=== PATIENT | male | born 1965 | race Caucasian/White ===

== ENCOUNTER 2018-07-18 00:34 | Emergency (ER) | payer BC, OTHER ==
[2018-07-18] MEDS ORDERED: FUROSEMIDE 40 MG TABLET PO ONE (01:12)
--- NOTE | 2018-07-18 01:15 | ER Document Report ---
ED General - General Chief Complaint: Shortness Of Breath Stated Complaint: DIFFICULTY BREATHING Time Seen by Provider: 07/18/18 01:06 Notes: Patient is a pleasant 52-year-old male who presents with complaint of feeling short of breath. He says has happened a few times last month where he lays flat he feels as if he cannot get air in his lungs. He sits up and gets better. He says he still has a feeling a little bit now but is getting better now that he has been sitting up for a long period time. He initially said he does not notice edema in his legs however when I look at his legs he does have obvious pitting edema and his says that this has been worsening as of recently. He denies any chest pain. No fevers. He quit smoking 20 years ago. No history of COPD or emphysema. No history of congestive heart failure. No history of coronary disease. No abdominal pain. No other complaints at this time. TRAVEL OUTSIDE OF THE [place] IN LAST 30 DAYS: No - Related Data Allergies/Adverse Reactions: latex Allergy (Verified 07/18/18 00:43) Past Medical History - Social History Smoking Status: Former Smoker Frequency of alcohol use: None Drug Abuse: None Family History: Reviewed & Not Pertinent Review of Systems - Review of Systems Notes: My Normal Review Basic REVIEW OF SYSTEMS: CONSTITUTIONAL : Denies fever, chills, or sweats. Denies recent illness. EENT: Denies eye, ear, throat, or mouth pain or symptoms. Denies nasal or sinus congestion. CARDIOVASCULAR: Denies chest pain. RESPIRATORY: Difficulty breathing. GASTROINTESTINAL: Denies abdominal pain. Denies nausea, vomiting, or diarrhea. GENITOURINARY: Denies difficulty urinating, painful urination, burning, frequency, or blood in urine. MUSCULOSKELETAL: Small amount of edema bilateral lower extremities. SKIN: Denies rash or skin lesions. NEUROLOGICAL: Denies sensory or motor loss. ALL OTHER SYSTEMS REVIEWED AND NEGATIVE. Physical Exam - Vital signs Vitals: Temp Pulse Resp BP Pulse Ox 97.3 F 68 17 174/93 H 97 07/18/18 00:45 07/18/18 00:45 07/18/18 00:45 07/18/18 00:45 07/18/18 00:45 - Notes Notes: General Appearance: Well nourished, alert, cooperative, no acute distress, no obvious discomfort. Well-appearing. Vitals: reviewed, See vital signs table. Head: no swelling or tenderness to the head Eyes: PERRL, EOMI, Conjuctiva clear Mouth: No decreasd moisture Lungs: No wheezing, No rales, No rhonci, No accessory muscle use, good air exchange bilaterally. Heart: Normal rate, Regular rythm, No murmur, no rub Abdomen: Normal BS, soft, No rigidity, No abdominal tenderness, No guarding, no rebound, no abdominal masses, no organomegaly Extremities: strength 5/5 in all extremities, good pulses in all extremities, no swelling or tenderness in the extremities, 2+ bilateral lower extremity edema.. Skin: warm, dry, appropriate color, no rash Neuro: speech clear, oriented x 3, normal affect, responds appropriately to questions. Course - Re-evaluation Re-evalutation: 07/18/18 06:03 She is feeling improved. He did receive Lasix. I suspect that he probably developed some point vascular congestion being that he gets short of breath when he lays flat and he has increasing edema in his lower extremities. I will place him on Lasix for the next couple days. His chest x-ray currently looks okay without evidence of actual edema or definite fluid overload that would require admission. I will discharge patient home on Lasix. I encouraged him to follow close with his primary care doctor. Informed him that he should follow-up with his doctor and talk about possibly have an outpatient echocardiogram performed. Also from the cardiology in case his primary care doctor does not feel comfortable arranging for the echocardiogram so that he can follow-up with them. He does have risk factors for congestive heart failure such as chronic high blood pressure. Patient to return to the ER if he has difficulty breathing, fevers, vomiting, or feels unwell. Dictation of this chart was performed using voice recognition software; therefore, there may be some unintended grammatical errors. - Vital Signs Vital signs: Temp Pulse Resp BP Pulse Ox 97.9 F 72 18 168/88 H 99 07/18/18 02:44 07/18/18 02:44 07/18/18 02:44 07/18/18 02:44 07/18/18 02:44 - Laboratory Result Diagrams: 07/18/18 01:02 07/18/18 01:02 Laboratory results interpreted by me: 07/18/18 07/18/18 01:02 01:02 RBC 5.71 H Monocytes % 13.1 H Glucose 116 H - EKG Interpretation by Me Additional EKG results interpreted by me: 07/18/18 01:23 EKG is reviewed and interpreted by me. EKG shows sinus rhythm with a rate of [address] segment elevation or depression. No ischemic T wave inversions. FL interval and QT intervals are within normal range. QRS duration is slightly prolonged. Discharge - Discharge Clinical Impression: Dyspnea Qualifiers: Dyspnea type: orthopnea Qualified Code(s): R06.01 - Orthopnea Condition: Good Disposition: HOME, SELF-CARE Additional Instructions: Please return to the ER immediately if you develop difficulty breathing, fevers , chest pain, or worsening swelling. I have prescribed a medication that help remove excess fluid. You should take the potassium supplementation with this medication because the medication lowers your potassium. You will need to follow up with your doctor this week for reevaluation and to arrange for an outpatient echocardiogram. If your doctor is uncomfortable doing this than you can contact the extraction machine operator, Dr. Whittaker, for an appointment for evaluation and further workup as he sees fit which may include an echocardiogram. The phone nuber to Dr. Whittaker's office is in your discharge paper work. Prescriptions: Furosemide [Lasix 20 mg Tablet] 20 mg PO QAM #14 tablet Potassium Chloride 10 meq PO DAILY #14 capsule.er Forms: Return to Work Referrals: JOSESITO FISHER MD [Primary Care Provider] - Follow up in 3-5 days BENI WHITTAKER MD [ACTIVE STAFF] - Follow up in 3-5 days
[2018-07-18 01:40] LABS: ABSOLUTE EOSINOPHILS # (AUTO) 0.4 10^3/uL (0.0-0.6); ABSOLUTE LYMPHOCYTES (AUTO) 1.4 10^3/uL (0.5-4.7); ABSOLUTE MONOCYTES (AUTO) 0.8 10^3/uL (0.1-1.4); ABSOLUTE NEUT (AUTO) 3.6 10^3/uL (1.7-8.2); BASOPHILS % (AUTO) 0.7 % (0-2); EOSINOPHILS % (AUTO) 5.7 % (0-6); HEMATOCRIT 50.1 % (37.9-51.0); HEMOGLOBIN 16.9 g/dL (13.5-17.0); LYMPHOCYTES % (AUTO) 23.2 % (13-45); MEAN CORPUSCULAR HEMOGLOBIN 29.7 pg (27.0-33.4); MEAN CORPUSCULAR HGB CONC 33.8 g/dL (32.0-36.0); MEAN CORPUSCULAR VOLUME 88 fl (80-97); MONOCYTES % (AUTO) 13.1 % (3-13); PLATELET COUNT 210 10^3/uL (150-450); RED BLOOD COUNT 5.71 10^6/uL (4.35-5.55); RED CELL DISTRIBUTION WIDTH 13.5 % (11.5-14.0); SEGMENTED NEUTROPHILS % (AUTO) 57.3 % (42-78); TOTAL CELLS COUNTED % (AUTO) 100 %; WHITE BLOOD COUNT 6.3 10^3/uL (4.0-10.5)
--- NOTE | 2018-07-18 01:47 | RADIOLOGY REPORT (SQ) ---
EXAM DESCRIPTION: XR CHEST 1 VIEW COMPLETED DATE/TME: 07/18/2018 01:11 CLINICAL HISTORY: 52 years, Male, dyspnea COMPARISON: None. NUMBER OF VIEWS: 1 TECHNIQUE: Portable chest LIMITATIONS: None. FINDINGS: Heart size normal. Lungs are clear. No pneumothorax IMPRESSION: Negative chest copyright 2011 [email or web address]- All Rights Reserved
[2018-07-18 01:53] LABS: ALANINE AMINOTRANSFERASE 34 U/L (21-72); ALBUMIN 4.3 g/dL (3.5-5.0); ALKALINE PHOSPHATASE 59 U/L (38-126); ANION GAP 7 (5-19); ASPARTATE AMINO TRANSFERASE 28 U/L (17-59); BILIRUBIN,DIRECT 0.3 mg/dL (0.0-0.4); BILIRUBIN,TOTAL 0.7 mg/dL (0.2-1.3); BLOOD UREA NITROGEN 19 mg/dL (7-20); CARBON DIOXIDE 27 mmol/L (22-30); CHLORIDE 107 mmol/L (98-107); GLUCOSE 116 mg/dL (75-110); POTASSIUM 4.7 mmol/L (3.6-5.0); SODIUM 140.7 mmol/L (137-145); TOTAL PROTEIN 6.8 g/dL (6.3-8.2)
[2018-07-18 02:07] LABS: NT PRO BNP < 11 pg/mL (5-900); TROPONIN I < 0.012 ng/mL
[2018-07-18 02:45] VITALS: BP 168/88
--- NOTE | 2018-07-19 00:51 | EKG REPORT ---
SEVERITY:- ABNORMAL ECG - SINUS RHYTHM NONSPECIFIC INTRAVENTRICULAR CONDUCTION DELAY : Confirmed by: Maddie Burton MD 19-Jul-2018 00:50:30
== END 2018-07-18 02:44 | disposition home or self-care (01) ==
LOC: ER 00:34
DX: R06.01 Orthopnea (principal); R60.0 Localized edema; Z87.891 Personal history of nicotine dependence; Z91.040 Latex allergy status
CPT/HCPCS: 36415; 71045; 80053; 83880; 84484; 85025; 93005; 93010; 99285